=== PATIENT | male | born 1995 | race African-American/Black ===

== ENCOUNTER 2018-03-17 20:08 | Emergency (ER) | payer OTHER ==
[~2018-03-17] VITALS: Ht 185.4 cm; Wt 99.8 kg
[2018-03-17 20:20] VITALS: BP 126/84
[2018-03-17] MEDS ORDERED: IBUPROFEN600 MG ORAL (20:55)
[2018-03-17] MEDS ORDERED: AUGMENTIN 875-1 EAC1 ORAL (20:55)
--- NOTE | 2018-03-17 20:56 | Emergency Room Report ---
History of Present Illness General Chief Complaint: Flu Like Symptoms Source: Patient Present Illness [facility] This is a 23-year-old male with no past medical history. He presents with chief complaint of flulike illness. Onset for last 3 days. He has fever and chills. Also with body aches. Also with nausea and vomiting. No diarrhea. No abdominal pain. Does show nauseous with occasional vomiting. Better with ibuprofen. Allergies: Coded Allergies: Baldwin (Verified Allergy, Unknown, 03/17/18) Patient History Past Medical History: none, see triage record, old chart reviewed Past Surgical History: none Pertinent Family History: none Social History: Denies: smoking Immunizations: other Reviewed Nursing Documentation: PMH: Agreed; PSxH: Agreed Nursing Documentation-PMH Past Medical History: No Stated History Review of Systems Constitutional: Reports: fever, malaise, weakness Eye: Denies: eye pain, blurred vision ENT: Reports: throat pain; Denies: ear pain, nose congestion, throat swelling Respiratory: Reports: cough; Denies: shortness of breath Cardiovascular: Denies: chest pain, palpitations Gastrointestinal: Reports: nausea, vomiting; Denies: abdominal pain, diarrhea Musculoskeletal: Denies: back pain, joint pain Skin: Denies: rash Neurological: Denies: headache, numbness Endocrine: Denies: increased thirst, increased urine Hematologic/Lymphatic: Denies: easy bruising All Other Systems: negative except mentioned in HPI Physical Exam Vital Signs Date Time Temp Pulse Resp B/P (MAP) Pulse Ox O2 Delivery O2 Flow Rate FiO2 03/17/18 20:27 101.8 113 16 112/70 96 Room Air vitals with fever Sp02 EP Interpretation: reviewed, normal General Appearance: well appearing, no apparent distress, alert Head: normocephalic, atraumatic Eyes: bilateral eye PERRL, bilateral eye EOMI ENT: hearing grossly normal, tonsillar swelling, pharyngeal erythema, tonsillar exudate Neck: full range of motion, supple, no meningismus Respiratory: chest non-tender, lungs clear, normal breath sounds Cardiovascular #1: regular rate, rhythm, no murmur Gastrointestinal: normal bowel sounds, non tender, no mass, no organomegaly, no bruit, non-distended Musculoskeletal: back normal, gait/station normal, normal range of motion Psychiatric: mood/affect normal Skin: warm/dry Medical Decision Making Diagnostic Impression: Primary Impression: Acute tonsillitis Qualified Codes: J03.90 - Acute tonsillitis, unspecified Additional Impression: Influenza-like symptoms ER Course Patient with flulike illness. He is outside the window for Tamiflu treatment. He does have exudative tonsillitis. We'll treat for possible strep throat also. No evidence of meningitis, sepsis, peritonsillar abscess, Ricardo angina or retropharyngeal abscess. Last Vital Signs Date Time Temp Pulse Resp B/P (MAP) Pulse Ox O2 Delivery O2 Flow Rate FiO2 03/17/18 20:27 101.8 113 16 112/70 96 Room Air Status: improved Disposition: HOME, SELF-CARE Condition: Stable Scripts Ibuprofen* (MOTRIN*) 600 Mg Tablet 600 MG ORAL THREE TIMES A DAY, #30 TAB 0 Refills Prov: Jett Billings MD 03/17/18 Amoxicillin/Potassium Clav 875-125* (AUGMENTIN 875-125 TABLET*) 1 Each Tablet 1 TAB ORAL TWICE A DAY, #14 TAB Prov: Jett Billings MD 03/17/18 Additional Instructions: Follow-up with your doctor in 7 days. Increase fluids. Return if symptom worsen. Jett Billings MD Mar 17, 2018 20:56
[2018-03-17 22:20] VITALS: BP 124/81
== END 2018-03-17 22:30 | disposition home or self-care (01) ==
LOC: EMR 22:25
DX: J03.90 Acute tonsillitis, unspecified (principal); R50.9 Fever, unspecified; M79.10 Myalgia, unspecified site; R11.2 Nausea with vomiting, unspecified
CPT/HCPCS: 99283